=== PATIENT | male | born 1940 | race Caucasian/White ===

== ENCOUNTER 2018-04-16 08:14 | Outpatient (CLI) | payer OTHER ==
[~2018-04-16 08:14] MED LIST: LIPITOR20 MG PO; NABUMETONE500 MG PO; PERCOCET 5/3251 TAB PO
== END 2018-04-16 08:18 | disposition home or self-care (01) ==
LOC: RAD 08:14 → MAMO-SONO 08:15 → RAD 08:18
DX: M16.0 Bilateral primary osteoarthritis of hip (principal); M12.852 Other specific arthropathies, not elsewhere classified, left hip; M12.851 Other specific arthropathies, not elsewhere classified, right hip

== ENCOUNTER 2020-03-03 10:09 | Outpatient (CLI) | payer OTHER | END 2020-03-03 10:11 | disposition home or self-care (01) | LOC: RAD 10:09 | PROVIDERS: ATTEND Internal Medicine Cardiovascular Disease | DX: M12.832 Other specific arthropathies, not elsewhere classified, left wrist (principal) ==

== ENCOUNTER 2021-07-19 10:02 | Outpatient (CLI) | payer OTHER | END 2021-07-19 10:14 | disposition home or self-care (01) | LOC: SONOGRAMA 10:02 | PROVIDERS: ATTEND Internal Medicine Cardiovascular Disease | DX: M12.9 Arthropathy, unspecified (principal); M46.40 Discitis, unspecified, site unspecified ==

== ENCOUNTER 2021-09-08 10:08 | Outpatient (CLI) | payer OTHER | END 2021-09-08 10:19 | disposition home or self-care (01) | LOC: TOM 10:08 | PROVIDERS: ATTEND Internal Medicine Cardiovascular Disease | DX: R42 Dizziness and giddiness (principal) ==

== ENCOUNTER 2021-12-20 09:19 | Outpatient (CLI) | payer OTHER | END 2021-12-20 09:24 | disposition home or self-care (01) | LOC: RAD 09:19 | PROVIDERS: ATTEND Internal Medicine Cardiovascular Disease | DX: M12.9 Arthropathy, unspecified (principal) ==